=== PATIENT | male | born 1960 | race Caucasian/White ===

== ENCOUNTER 2020-01-01 01:31 | Observation (INO) | payer OTHER ==
[~2020-01-01] VITALS: Ht 190.5 cm; Wt 101.0 kg
[2020-01-01] MEDS ORDERED: ONDANSETRON 2MG/ML, 2ML ONE ×4 (01:55→07:40)
[2020-01-01] MEDS ORDERED: HYDROmorphone 1 MG/ML, 1ML INJ ONE ×4 (01:55→05:17)
[2020-01-01] MEDS ORDERED: ONDANSETRON 2MG/ML, 2ML IVPush ONE (02:00)
[2020-01-01] MEDS ORDERED: SODIUM CHLORIDE FLUSH 10ML SYR IVF ONE (02:00)
[2020-01-01] MEDS ORDERED: SODIUM CHLORIDE 0.9% 1,000ML IVBOLUS ONE (02:00)
[2020-01-01] MEDS: HYDROmorphone 2 MG/ML, 1ML IVPush PRN ×2 (02:21→02:52)
--- NOTE | 2020-01-01 02:21 | NUR ---
TASK RN: PATIENT MEDICATED PER EMAR, TOELRATED WELL
[2020-01-01 02:39] LABS: ANION GAP 8 mmol/L (5-15); CALCIUM 8.8 mg/dL (8.5-10.1); CHLORIDE 107 mmol/L (98-107); CREATININE 1.11 mg/dL (0.7-1.3)
[2020-01-01 02:40] LABS: ALANINE AMINOTRANSFERASE 93 U/L (12-78); ALBUMIN 3.9 g/dL (3.4-5.0)
[2020-01-01 02:42] LABS: BASOPHILS # (AUTO) 0.04 x10^3/uL (0-0.1); BASOPHILS % (AUTO) 0 % (0-1); EOSINOPHILS # (AUTO) 0.09 x10^3/uL (0-0.4); EOSINOPHILS % (AUTO) 1 % (1-7); LYMPHOCYTES # (AUTO) 1.63 x10^3/uL (1-3.4); LYMPHOCYTES % (AUTO) 12 % (22-44); MD NO; MEAN CORPUSCULAR HEMOGLOBIN 31.2 pg (27.5-34.5); MEAN CORPUSCULAR HGB CONC 33.6 g/dL (33.2-36.2); MEAN CORPUSCULAR VOLUME 93.1 fL (81-97); MONOCYTES # (AUTO) 0.77 x10^3/uL (0.2-0.8); MONOCYTES % (AUTO) 6 % (2-9); NEUTROPHILS % (AUTO) 81 % (42-75); PLATELET COUNT 336 x10^3/uL (130-400); RED BLOOD COUNT 5.13 x10^6/uL (4.38-5.82); RED CELL DISTRIBUTION WIDTH 13.7 % (9.4-14.8)
[2020-01-01 02:44] LABS: ALKALINE PHOSPHATASE 69 U/L (45-117); BILIRUBIN,TOTAL 0.5 mg/dL (0.2-1.0); TROPONIN I < 0.015 ng/mL (0.000-0.045)
--- NOTE | 2020-01-01 02:52 | NUR ---
PT MEDICATED FOR PAIN AT THIS TIME
--- NOTE | 2020-01-01 02:55 | NUR ---
PT TO CT
[2020-01-01] MEDS ORDERED: OMNIPAQUE 350 MG/ML, 100ML BOTTLE ONE (03:15)
[2020-01-01] MEDS ORDERED: HYDROmorphone 2 MG/ML, 1ML IVPush PRN (03:30)
[2020-01-01] MEDS ORDERED: PIPERACILLIN/TAZO/PMX 3.375GM 50 ML IV ONE (03:30)
--- NOTE | 2020-01-01 03:40 | NUR ---
LAB AT BEDSIDE FOR CULTURES AT THIS TIME.
[2020-01-01] MEDS ORDERED: PIPERACILLIN/TAZO/PMX 3.375GM 50 ML ONE (03:44)
--- NOTE | 2020-01-01 04:02 | NUR ---
PT MEDICATED PER MAR, CULTURES DRAWN X2 PRIOR TO ABX START.
[2020-01-01] MEDS ORDERED: SODIUM CHLORIDE 0.9% 1,000 ML IV ONE (04:20)
[2020-01-01] MEDS ORDERED: SODIUM CHLORIDE FLUSH 10ML SYR IVF PRN (04:30)
[2020-01-01] MEDS ORDERED: HYDROmorphone 1 MG/ML, 1ML INJ IVPush PRN ×2 (04:30→07:30)
[2020-01-01] MEDS ORDERED: ONDANSETRON 2MG/ML, 2ML IVPush PRN ×2 (04:30→11:30)
[2020-01-01] MEDS ORDERED: PROMETHAZINE 25 MG/ML, 1ML IM PRN (04:30)
--- NOTE | 2020-01-01 05:14 | NUR ---
REPORT TO OR KIM ZALDIVAR WILL BE DOWN SOON TO GET PT. REPORT TO FLOOR LORENA VICK WELL.
--- NOTE | 2020-01-01 05:21 | NUR ---
PT MEDICATED FOR PAIN PER MAR
[2020-01-01] MEDS ORDERED: MIDAZOLAM 1 MG/ML, 2ML ONE (06:27)
[2020-01-01] MEDS ORDERED: FENTANYL PF 100 MCG/2ML ONE ×4 (06:27→08:46)
[2020-01-01] MEDS ORDERED: CHLORHEXIDINE 15 ML UDC ONE (06:45)
[2020-01-01] MEDS ORDERED: KETOROLAC 30 MG/1 ML ONE (06:50)
[2020-01-01] MEDS ORDERED: DEXAMETHASONE 4 MG/ML, 1ML ONE ×2 (06:50→07:40)
[2020-01-01] MEDS ORDERED: LIDOCAINE PF 2%, 5ML ONE (06:50)
[2020-01-01] MEDS ORDERED: BUPIVACAINE/PF-EPI 0.5% 1:200K INFIL ONE (07:02)
[2020-01-01] MEDS ORDERED: ACETAMINOPHEN 325 MG TABLET PO PRN (07:30)
[2020-01-01] MEDS ORDERED: hydrALAzine 20 MG/ML, 1ML IV PRN (07:30)
[2020-01-01] MEDS ORDERED: ALBUTEROL SULFATE 2.5 MG/3 ML NPPB PRN (07:30)
[2020-01-01] MEDS ORDERED: OXYcodone 5 MG/5 ML ORAL.SOL UDC PO PRN (07:30)
[2020-01-01] MEDS ORDERED: LABETALOL 5MG/ML, 20ML IV PRN (07:30)
[2020-01-01] MEDS ORDERED: LORazepam 2 MG/ML, 1ML IVPush PRN (07:30)
[2020-01-01] MEDS ORDERED: MEPERIDINE/PF 25MG/0.5ML IVPush PRN (07:30)
[2020-01-01] MEDS ORDERED: PROMETHAZINE 25 MG/ML, 1ML IVPush PRN (07:30)
[2020-01-01] MEDS ORDERED: ROCURONIUM 10MG/ML,5ML ONE (07:40)
[2020-01-01] MEDS ORDERED: GLYCOPYRROLATE 0.2MG/1ML, 5ML ONE (07:40)
[2020-01-01] MEDS ORDERED: PROPOFOL 10 MG/ML, 20ML ONE (07:40)
[2020-01-01] MEDS ORDERED: NEOSTIGMINE 1 MG/ML, 10ML ONE (07:40)
[2020-01-01] MEDS ORDERED: CEFAZOLIN 1,000 MG ONE (07:40)
[2020-01-01] MEDS ORDERED: SUCCINYLCHOLINE 20 MG/ML, 10ML ONE (07:40)
[2020-01-01] MEDS: FENTANYL PF 100 MCG/2ML IV PRN ×4 (08:06→09:08)
[2020-01-01] MEDS ORDERED: ACETAMINOPHEN 650 MG/20.3 ML UDC ONE (08:16)
[2020-01-01] MEDS ORDERED: OXYcodone 5 MG/5 ML ORAL.SOL UDC ONE ×2 (08:17→08:20)
[2020-01-01] MEDS ORDERED: PROMETHAZINE 25 MG/ML, 1ML ONE (08:31)
[2020-01-01] MEDS ORDERED: METOCLOPRAMIDE 5 MG/ML, 2ML ONE (08:58)
[2020-01-01] MEDS ORDERED: METOCLOPRAMIDE 5 MG/ML, 2ML IVPush PRN (09:00)
[2020-01-01 09:35] VITALS: BP 123/76
[2020-01-01] MEDS ORDERED: AMOXICILLIN/CLAV 500-125MG TABLET PO SCH (11:30)
[2020-01-01] MEDS ORDERED: LACTATED RINGERS 1,000 ML IV SCH (11:30)
[2020-01-01] MEDS ORDERED: OXYcodone/APAP 5/325MG TABLET PO PRN (11:30)
[2020-01-01] MEDS ORDERED: morphine SULFATE 10 MG/ML, 1ML IVPush PRN (12:00)
[2020-01-01] MEDS ORDERED: ONDA4TAB7 PO (12:24)
[2020-01-01] MEDS ORDERED: OXYC-302 PO (12:24)
[2020-01-01] MEDS ORDERED: AMOX1TAB61 PO (12:25)
[2020-01-01 12:40] VITALS: BP 144/79
== END 2020-01-01 14:55 | disposition home or self-care (01) ==
LOC: ED 04:31 → INTOOBSV 05:10 → EDIP 05:10 → 4NE 09:30 → DCLOUNGE 14:40
PROVIDERS: ADMIT Surgery; ATTEND Surgery
DX: Z03.818 Encounter for observation for suspected exposure to other biological agents ruled out (principal); K80.00 Calculus of gallbladder with acute cholecystitis without obstruction; K21.9 Gastro-esophageal reflux disease without esophagitis; Z79.899 Other long term (current) drug therapy; Z68.28 Body mass index [BMI] 28.0-28.9, adult
CPT/HCPCS: 36415; 47562; 71045; 74177; 80053; 80307; 83605; 83690; 84484; 85025; 87040; 87635; 88304; 93005; 96374; 96375; 96376; 99285; G0378; J0330; J0690; J1100; J1170; J1885; J2250; J2405; J2543; J2550; J2704; J2710; J2765; J3010; J7030; Q9967